=== PATIENT | male | born 1975 ===

== ENCOUNTER 2018-04-16 00:39 | Emergency (ER) | payer SELFPAY ==
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
[2018-04-16 01:58] VITALS: O2SAT 99
[2018-04-16 02:18] VITALS: BP 138/76; PULSE 76; RESP 14; TEMP 98.3
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
== END 2018-04-16 02:28 | disposition home or self-care (01) ==
LOC: C.ER 00:39
DX: S40.012A Contusion of left shoulder, initial encounter (principal); V49.9XXA Car occupant (driver) (passenger) injured in unspecified traffic accident, initial encounter